=== PATIENT | male | born 1980 | race American Indian/Alaskan Native ===

== ENCOUNTER 2018-02-15 07:44 | Emergency (ER) | payer OTHER ==
[2018-02-15 08:09] VITALS: BP 136/86
[2018-02-15] MEDS ORDERED: DECADRON ONE (08:24)
[2018-02-15] MEDS ORDERED: BICILLIN L-A IM ONE (09:07)
[2018-02-15] MEDS ORDERED: DECADRON IM ONE (09:07)
[2018-02-15] MEDS ORDERED: TYLENOL/CODEINE PO ONE (09:07)
--- NOTE | 2018-02-15 09:11 | Emergency Department Report ---
ED ENT HPI - General Chief complaint: Sore Throat Stated complaint: tonsil pain Time Seen by Provider: 02/15/18 09:06 Source: patient Mode of arrival: Ambulatory Limitations: No Limitations - History of Present Illness Initial comments: Patient reports he was seen and treated at [place] 3 days ago and diagnosed with viral pharyngitis. He was given Magic mouthwash with lidocaine, ibuprofen, Sudafed and Flonase. However symptoms worsen over the weekend. He complains of sore throat with difficulty swallowing. MD complaint: sore throat Onset/Timin -: days(s) Location: throat Severity: severe Severity scale (0 -10): 10 Quality: aching Consistency: constant Improves with: none Worsens with: swallowing Context-Epistaxis: other (none) Context- Dental: other (none) Context- Ear: other (none) Associated Symptoms: pain with swallowing, sore throat. denies: cough, gum swelling, toothache, tinnitus, hearing loss, discharge from ear, rhinorrhea - Related Data Previous Rx's Medication Instructions Recorded Last Taken Type Acetaminophen/Codeine [Tylenol 1 tab PO Q6H PRN #12 tab 02/15/18 Unknown Rx /Codeine # 3 tab] predniSONE [Deltasone] 20 mg PO BID #10 tablet 02/15/18 Unknown Rx Allergies Allergy/AdvReac Type Severity Reaction Status Date / Time shrimp AdvReac Swelling Verified 02/15/18 08:10 ED Dental HPI - General Chief complaint: Sore Throat Stated complaint: tonsil pain Source: patient Mode of arrival: Ambulatory Limitations: No Limitations - Related Data Previous Rx's Medication Instructions Recorded Last Taken Type Acetaminophen/Codeine [Tylenol 1 tab PO Q6H PRN #12 tab 02/15/18 Unknown Rx /Codeine # 3 tab] predniSONE [Deltasone] 20 mg PO BID #10 tablet 02/15/18 Unknown Rx Allergies Allergy/AdvReac Type Severity Reaction Status Date / Time shrimp AdvReac Swelling Verified 02/15/18 08:10 ED Review of Systems ROS: Stated complaint: tonsil pain Other details as noted in HPI Constitutional: denies: chills, diaphoresis, fever, malaise, weakness Eyes: denies: eye pain, eye discharge, vision change ENT: throat pain. denies: ear pain, dental pain, hearing loss, epistaxis, congestion Respiratory: denies: cough, orthopnea, shortness of breath, SOB with exertion, SOB at rest, stridor, wheezing Cardiovascular: denies: chest pain, palpitations, dyspnea on exertion, orthopnea , edema, syncope, paroxysmal nocturnal dyspnea Musculoskeletal: denies: back pain, joint swelling, arthralgia Skin: denies: rash, lesions Neurological: denies: headache, weakness, paresthesias Psychiatric: as per HPI Hematological/Lymphatic: denies: easy bleeding, easy bruising ED Past Medical Hx - Past Medical History Previous Medical History?: Yes Hx Seizures: Yes - Surgical History Past Surgical History?: No - Social History Smoking Status: Current Every Day Smoker Substance Use Type: None - Medications Home Medications: Home Medications Medication Instructions Recorded Confirmed Last Taken Type Acetaminophen/Codeine [Tylenol 1 tab PO Q6H PRN #12 tab 02/15/18 Unknown Rx /Codeine # 3 tab] predniSONE [Deltasone] 20 mg PO BID #10 tablet 02/15/18 Unknown Rx ED Physical Exam - General Limitations: No Limitations General appearance: alert, in no apparent distress - Head Head exam: Present: atraumatic, normocephalic - Eye Eye exam: Present: normal appearance, PERRL, EOMI - ENT ENT exam: Present: mucous membranes moist, TM's normal bilaterally, normal external ear exam - Expanded ENT Exam Expanded Ear exam: Present: normal external inspection Mouth exam: Present: normal external inspection, tongue normal. Absent: drooling, trismus, muffled voice, tongue elevation, laceration Teeth exam: Present: normal inspection Throat exam: Positive: tonsillar erythema, tonsillomegaly. Negative: tonsillar exudate, R peritonsillar mass, L peritonsillar mass - Neck Neck exam: Present: tenderness, full ROM, lymphadenopathy (right). Absent: meningismus, thyromegaly - Respiratory Respiratory exam: Present: normal lung sounds bilaterally. Absent: respiratory distress, wheezes, rales, rhonchi, stridor, chest wall tenderness, accessory muscle use, decreased breath sounds, prolonged expiratory - Cardiovascular Cardiovascular Exam: Present: regular rate, normal rhythm, normal heart sounds. Absent: systolic murmur, diastolic murmur, rubs, gallop - Back Exam Back exam: Present: normal inspection - Neurological Exam Neurological exam: Present: alert, oriented X3, CN II-XII intact, normal gait, reflexes normal. Absent: motor sensory deficit - Psychiatric Psychiatric exam: Present: normal affect, normal mood - Skin Skin exam: Present: warm, dry, intact, normal color. Absent: rash ED Course Vital Signs 02/15/18 08:04 Temperature 98.4 F Pulse Rate 86 Respiratory 18 Rate Blood Pressure 136/86 O2 Sat by Pulse 98 Oximetry - Reevaluation(s) Reevaluation #1: 02/15/18 09:10 Throat culture, analgesic, antibiotic and steroid injection were ordered ED Medical Decision Making - Lab Data Temp Pulse Resp BP Pulse Ox 98.4 F 86 18 136/86 98 02/15/18 08:04 02/15/18 08:04 02/15/18 08:04 02/15/18 08:04 02/15/18 08:04 - Medical Decision Making During the course of ED, throat culture, analgesics, antibiotic and steroid injections were ordered. He reports symptoms relief prior to discharge. Patient was sent home with prescriptions for prednisone and Tylenol with Codeine , instructed to follow with PCP this week, he verbalized understanding - Differential Diagnosis Pharyngitis, Tonsillitis Critical care attestation.: If time is entered above; I have spent that time in minutes in the direct care of this critically ill patient, excluding procedure time. ED Disposition Clinical Impression: Acute pharyngitis Qualifiers: Pharyngitis/tonsillitis etiology: unspecified etiology Qualified Code(s): J02.9 - Acute pharyngitis, unspecified Disposition: DC-01 TO HOME OR SELFCARE Is pt being admited?: No Does the pt Need Aspirin: No Condition: Stable Instructions: Pharyngitis (ED) Additional Instructions: Take medications as directed. No drinking and driving while taking medication. Follow with your primary care physician. Return to the ED for worsening symptoms or concerns Prescriptions: Acetaminophen/Codeine [Tylenol /Codeine # 3 tab] 1 tab PO Q6H PRN #12 tab PRN Reason: Pain , Severe (7-10) predniSONE [Deltasone] 20 mg PO BID #10 tablet Referrals: PRIMARY CARE, [Primary Care Provider] - 3-5 Days Forms: Work/School Release Form(ED) Time of Disposition: 09:14
== END 2018-02-15 09:46 | disposition home or self-care (01) ==
LOC: ED 07:44
DX: J02.9 Acute pharyngitis, unspecified (principal); F17.200 Nicotine dependence, unspecified, uncomplicated; Z91.013 Allergy to seafood
CPT/HCPCS: 87116; 96372; 99282; J0561; J1100